=== PATIENT | female | born 1990 | race Caucasian/White ===

== ENCOUNTER 2016-09-14 15:37 | Emergency (ER) | payer OTHER ==
[~2016-09-14] VITALS: Ht 157.5 cm; Wt 70.8 kg
[~2016-09-14 15:37] MED LIST: AMOXICILLIN500 MG PO; ATHENOL325 MG PO; ATIVAN0.5 MG PO; BENTYL10 MG PO; BIRTH CONTROL PILL; BUTALB-APAP-CA1 EACH PO; CYMBALTA30 MG PO; CYMBALTA60 MG PO; DULOXETINE HCL30 MG PO; DULOXETINE HCL60 MG PO; FOLIC ACID0.4 MG PO; IBUPROFEN800 MG PO; IMITREX50 MG PO; KEPPRA1000 MG PO; KEPPRA500 MG PO; LAMICTAL150 MG PO; LAMICTAL25 MG PO; LAMOTRIGINE100 MG PO; LEVOFLOXACIN750 MG PO; LORAZEPAM0.5 MG PO; NORTRIPTYLINE H50 MG PO; PEN-VEE K,VEET500 MG PO; PERCOCET 5/31 TABLET PO; PREDNISONE20 MG PO; PRENATA CHEWAB1 EACH PO; PREVACID30 MG PO; PRILOSEC40 MG PO; PROAIR HFA8.5 GM IH; RISPERDAL1 M1 PO; SEROQUEL100 MG PO; SEROQUEL50 MG PO; SUMATRIPTAN SU100 MG PO; TOPAMAX25 MG PO; TORADOL10 MG PO; TRAZODONE HCL50 MG PO; TROKENDI XR200 MG PO; WELLBUTRIN SR150 MG PO; ZOFRAN ODT4 MG PO; ZOFRAN4 MG PO
[2016-09-14] MEDS ORDERED: LAMICTAL25 MG PO (15:50)
[2016-09-14] MEDS ORDERED: CYMBALTA60 MG PO (15:50)
[2016-09-14 17:00] LABS: MCH 29.3 PG (29.0-34.0); MCHC 33.9 G/DL (30.0-36.0); MCV 86.5 FL (83-99); MEAN PLAT.VOLUME 9.5 uM^3 (9.5-12.4); PLATELET COUNT 319 K/uL (156-360); RBC DIS.WIDTH-CV 12.6 % (11.8-14.6); RBC DIS.WIDTH-SD 39.9 % (39-53); RED BLOOD COUNT 4.74 M/uL (3.80-5.20); WHITE BLOOD COUNT 7.7 K/uL (4.1-10.2)
[2016-09-14 17:03] LABS: ADD MIUA? YES; BILIRUBIN NEGATIVE; BLOOD NEGATIVE; COLOR YELLOW ((YELLOW)); GLUCOSE (STRIP) NEGATIVE; KETONES NEGATIVE; LEUKOCYTES TRACE; NITRITE NEGATIVE; PROTEIN (STRIP) NEGATIVE; SPECIFIC GRAVITY 1.009 (1.000-1.030); UROBILINOGEN 0.2 MG/DL (0.2-1.0)
[2016-09-14 17:07] LABS: CHLORIDE 106 mEq/L (99-109); POTASSIUM 4.4 mEq/L (3.7-5.4); SODIUM 138 mEq/L (136-147)
[2016-09-14 17:10] LABS: GLUCOSE 91 mg/dL (70-99)
[2016-09-14 17:10] LABS: AMPHETAMINE NEGATIVE (500 ng/mL); BARBITURATES NEGATIVE (200 ng/mL); BENZODIAZEPINES NEGATIVE (150 ng/mL); COCAINE NEGATIVE (150 ng/mL); INTERNAL CONTROLS VALID? YES; METHADONE NEGATIVE (200 ng/mL); METHAMPHETAMINE NEGATIVE (500 ng/mL); OPIATES (MORPHINE) NEGATIVE (100 ng/mL); OXYCODONE NEGATIVE (100 ng/mL); PHENCYCLIDINE NEGATIVE (25 ng/mL); PROPOXYPHENE NEGATIVE (300 ng/mL); THC CANNABINOIDS NEGATIVE (50 ng/mL); TRICYCLIC ANTIDEPRESSANTS NEGATIVE (300 ng/mL)
[2016-09-14 17:11] LABS: ANION GAP 8 MEQ/L (2-14); TOTAL BILIRUBIN 0.4 mg/dL (0.0-1.0)
[2016-09-14 17:12] LABS: SERUM ETHYL ALCOHOL < 10 mg/dL
[2016-09-14 17:13] LABS: ALKALINE PHOSPHATASE 86 IU/L (3-129); GFR ESTIMATE (CALCULATED) > 59 mL/min/
[2016-09-14 17:14] LABS: UREA NITROGEN (BUN) 8 mg/dL (9-23)
[2016-09-14 17:20] LABS: BACTERIA 1+ /HPF; CASTS NONE SEEN /LPF; CRYSTALS NONE SEEN; EPITHELIAL CELLS 1+ /HPF; MUCUS RARE /LPF; RED BLOOD CELLS 0-5 /HPF (0-5)
[2016-09-14 20:29] LABS: QUANTITATIVE HCG < 4.0 MIU/ML
[2016-09-15 00:13] VITALS: BP 109/66
== END 2016-09-15 00:15 ==
LOC: EME 15:37
PROVIDERS: Emergency Medicine
DX: F33.2 Major depressive disorder, recurrent severe without psychotic features (principal); F43.10 Post-traumatic stress disorder, unspecified; R45.851 Suicidal ideations; R56.9 Unspecified convulsions; F17.200 Nicotine dependence, unspecified, uncomplicated
CPT/HCPCS: 80053; 81003; 84702; 85027; 90839; 99281; 99285; G0480

== ENCOUNTER 2016-10-28 15:06 | Emergency (ER) | payer OTHER ==
[~2016-10-28] VITALS: Ht 157.5 cm; Wt 70.4 kg
[2016-10-28 16:00] VITALS: BP 121/77
== END 2016-10-28 16:00 | disposition home or self-care (01) ==
LOC: EME 15:06
DX: N63 Unspecified lump in breast (principal)
CPT/HCPCS: 99281; 99282

== ENCOUNTER 2017-01-29 16:22 | Emergency (ER) | payer OTHER ==
[~2017-01-29] VITALS: Ht 157.5 cm; Wt 51.1 kg
[2017-01-29 17:03] LABS: HEMATOCRIT 42.7 % (36.0-46.0); MCH 30.5 PG (29.0-34.0); MCHC 34.7 G/DL (30.0-36.0); PLATELET COUNT 383 K/uL (156-360); RBC DIS.WIDTH-CV 12.1 % (11.8-14.6); RBC DIS.WIDTH-SD 39.1 % (39-53); RED BLOOD COUNT 4.85 M/uL (3.80-5.20); WHITE BLOOD COUNT 11.9 K/uL (4.1-10.2)
[2017-01-29 17:24] LABS: TROP-I INTERPRETATION NEGATIVE; TROPONIN-I < 0.01 ng/mL (0.0-0.30)
[2017-01-29 17:34] LABS: CHLORIDE 105 mEq/L (99-109); POTASSIUM 3.5 mEq/L (3.7-5.4); SODIUM 137 mEq/L (136-147)
[2017-01-29 17:36] LABS: GLUCOSE 93 mg/dL (70-99)
[2017-01-29 17:37] LABS: ANION GAP 11 MEQ/L (2-14)
[2017-01-29 17:40] LABS: GFR ESTIMATE (CALCULATED) > 59 mL/min/
[2017-01-29 17:41] LABS: UREA NITROGEN (BUN) 9 mg/dL (9-23)
[2017-01-29 17:48] LABS: QUANTITATIVE HCG < 4.0 MIU/ML
[2017-01-29 19:13] VITALS: BP 115/72
== END 2017-01-29 18:50 | disposition home or self-care (01) ==
LOC: EME 16:22
PROVIDERS: Emergency Medicine
DX: G40.909 Epilepsy, unspecified, not intractable, without status epilepticus (principal); J40 Bronchitis, not specified as acute or chronic; R51 Headache; R42 Dizziness and giddiness; Z82.49 Family history of ischemic heart disease and other diseases of the circulatory system; F17.200 Nicotine dependence, unspecified, uncomplicated
CPT/HCPCS: 71010; 80048; 84484; 84702; 85027; 93005; 94640; 99281; 99284

== ENCOUNTER 2017-02-13 21:48 | Emergency (ER) | payer OTHER ==
[~2017-02-13] VITALS: Ht 157.5 cm; Wt 74.9 kg
[2017-02-13] MEDS ORDERED: BACTRIM,SEPT1 TABLET PO (22:10)
[2017-02-13 22:41] VITALS: BP 139/72
== END 2017-02-13 22:42 | disposition home or self-care (01) ==
LOC: EME 21:48
DX: J20.9 Acute bronchitis, unspecified (principal); R11.10 Vomiting, unspecified; R19.7 Diarrhea, unspecified; F17.200 Nicotine dependence, unspecified, uncomplicated; F32.9 Major depressive disorder, single episode, unspecified; F41.9 Anxiety disorder, unspecified; R56.9 Unspecified convulsions
CPT/HCPCS: 99281; 99284

== ENCOUNTER 2017-02-24 15:42 | Emergency (ER) | payer SELFPAY ==
[~2017-02-24] VITALS: Ht 157.5 cm; Wt 72.5 kg
[~2017-02-24 15:42] MED LIST changes: +BACTRIM,SEPT1 TABLET PO
[2017-02-24 16:15] LABS: HEMATOCRIT 40.7 % (36.0-46.0); MCH 30.6 PG (29.0-34.0); MCHC 34.4 G/DL (30.0-36.0); MCV 88.9 FL (83-99); MEAN PLAT.VOLUME 9.4 uM^3 (9.5-12.4); PLATELET COUNT 380 K/uL (156-360); RBC DIS.WIDTH-SD 38.8 % (39-53); RED BLOOD COUNT 4.58 M/uL (3.80-5.20); WHITE BLOOD COUNT 7.7 K/uL (4.1-10.2)
[2017-02-24 16:24] LABS: CHLORIDE 107 mEq/L (99-109); POTASSIUM 4.1 mEq/L (3.7-5.4); SODIUM 139 mEq/L (136-147)
[2017-02-24 16:26] LABS: GLUCOSE 86 mg/dL (70-99)
[2017-02-24 16:28] LABS: ANION GAP 8 MEQ/L (2-14); TOTAL BILIRUBIN 0.4 mg/dL (0.0-1.0)
[2017-02-24 16:30] LABS: ALKALINE PHOSPHATASE 63 IU/L (3-129); GFR ESTIMATE (CALCULATED) > 59 mL/min/
[2017-02-24 16:31] LABS: UREA NITROGEN (BUN) 9 mg/dL (9-23)
[2017-02-24 16:40] LABS: QUANTITATIVE HCG < 4.0 MIU/ML
[2017-02-24] MEDS ORDERED: ATARAX,VISTARIL25 MG PO (17:53)
[2017-02-24] MEDS ORDERED: NUVARING VAGIN1 EACH VG (17:53)
[2017-02-24 18:22] LABS: ADD MIUA? YES; BILIRUBIN NEGATIVE; BLOOD NEGATIVE; COLOR YELLOW ((YELLOW)); GLUCOSE (STRIP) NEGATIVE; KETONES NEGATIVE; LEUKOCYTES NEGATIVE; NITRITE NEGATIVE; PROTEIN (STRIP) NEGATIVE; SPECIFIC GRAVITY 1.023 (1.000-1.030); UROBILINOGEN 0.2 MG/DL (0.2-1.0)
[2017-02-24 18:28] LABS: BACTERIA NONE SEEN /HPF; EPITHELIAL CELLS 1+ /HPF; MUCUS TRACE /LPF; RED BLOOD CELLS 0-5 /HPF (0-5); UCUL ADDED? NO; WHITE BLOOD CELLS 0-5 /HPF (0-5)
[2017-02-24] MEDS ORDERED: BENTYL20 MG PO (18:44)
[2017-02-24 20:24] VITALS: BP 117/79
== END 2017-02-24 20:29 | disposition home or self-care (01) ==
LOC: EME 15:42
DX: R10.31 Right lower quadrant pain (principal); R11.2 Nausea with vomiting, unspecified; F17.200 Nicotine dependence, unspecified, uncomplicated
CPT/HCPCS: 80053; 81003; 84702; 85027; 99281; 99284

== ENCOUNTER 2017-05-08 15:09 | Emergency (ER) | payer SELFPAY ==
[~2017-05-08] VITALS: Ht 157.5 cm; Wt 73.8 kg
[~2017-05-08 15:09] MED LIST changes: +ATARAX,VISTARIL25 MG PO; +BENTYL20 MG PO; +NUVARING VAGIN1 EACH VG
[2017-05-08] MEDS ORDERED: PHENERGAN-CODE120 ML PO (16:21)
[2017-05-08] MEDS ORDERED: ZITHROMAX Z-PA250 MG PO (16:21)
[2017-05-08 16:35] VITALS: BP 120/86
== END 2017-05-08 16:35 | disposition home or self-care (01) ==
LOC: EME 15:09
DX: J40 Bronchitis, not specified as acute or chronic (principal); F17.200 Nicotine dependence, unspecified, uncomplicated
CPT/HCPCS: 71046; 99281; 99284

== ENCOUNTER 2017-08-02 18:30 | Emergency (ER) | payer OTHER ==
[~2017-08-02] VITALS: Ht 157.5 cm; Wt 74.2 kg
[~2017-08-02 18:30] MED LIST changes: +PHENERGAN-CODE120 ML PO; +ZITHROMAX Z-PA250 MG PO
[2017-08-02 19:06] LABS: HEMATOCRIT 39.1 % (36.0-46.0); HEMOGLOBIN 13.6 G/DL (11.9-15.5); MCH 30.5 PG (29.0-34.0); MCHC 34.8 G/DL (30.0-36.0); MCV 87.7 FL (83-99); PLATELET COUNT 298 K/uL (156-360); RBC DIS.WIDTH-CV 11.9 % (11.8-14.6); RBC DIS.WIDTH-SD 38.4 % (39-53); RED BLOOD COUNT 4.46 M/uL (3.80-5.20); WHITE BLOOD COUNT 6.3 K/uL (4.1-10.2)
[2017-08-02 19:18] LABS: ALBUMIN 4.3 g/dL (3.2-4.8); CHLORIDE 102 mEq/L (99-109); POTASSIUM 3.9 mEq/L (3.7-5.4); SODIUM 138 mEq/L (136-147)
[2017-08-02 19:20] LABS: GLUCOSE 89 mg/dL (70-99); TOTAL PROTEIN 7.4 g/dL (6.4-8.3)
[2017-08-02 19:22] LABS: TOTAL BILIRUBIN 0.7 mg/dL (0.0-1.0)
[2017-08-02 19:24] LABS: ALKALINE PHOSPHATASE 68 IU/L (3-129); CREATININE 0.9 mg/dL (0.6-1.3); GFR ESTIMATE (CALCULATED) > 59 mL/min/
[2017-08-02 19:25] LABS: UREA NITROGEN (BUN) 10 mg/dL (9-23)
[2017-08-02 19:26] LABS: AST (GOT) 17 IU/L (2-34)
[2017-08-02 19:27] LABS: ALT (GPT) 16 IU/L (3-49)
[2017-08-02 19:33] LABS: QUANTITATIVE HCG 4.8 MIU/ML
[2017-08-02 20:54] VITALS: BP 119/82
== END 2017-08-02 20:54 | disposition home or self-care (01) ==
LOC: EME 18:30
PROVIDERS: Nurse Practitioner Family
DX: R10.2 Pelvic and perineal pain (principal); N93.9 Abnormal uterine and vaginal bleeding, unspecified; N83.202 Unspecified ovarian cyst, left side; F17.200 Nicotine dependence, unspecified, uncomplicated
CPT/HCPCS: 76856; 80053; 84702; 85027; 99281; 99285

== ENCOUNTER 2017-08-03 22:17 | Emergency (ER) | payer OTHER ==
[~2017-08-03] VITALS: Ht 157.5 cm; Wt 72.1 kg
[2017-08-03 23:28] LABS: HEMATOCRIT 38.9 % (36.0-46.0); HEMOGLOBIN 13.5 G/DL (11.9-15.5); MCH 30.8 PG (29.0-34.0); MCHC 34.7 G/DL (30.0-36.0); MCV 88.8 FL (83-99); PLATELET COUNT 277 K/uL (156-360); RBC DIS.WIDTH-CV 11.8 % (11.8-14.6); RBC DIS.WIDTH-SD 38.3 % (39-53); RED BLOOD COUNT 4.38 M/uL (3.80-5.20); WHITE BLOOD COUNT 5.9 K/uL (4.1-10.2)
[2017-08-03 23:40] LABS: CHLORIDE 104 mEq/L (99-109); POTASSIUM 3.7 mEq/L (3.7-5.4); SODIUM 136 mEq/L (136-147)
[2017-08-03 23:42] LABS: GLUCOSE 87 mg/dL (70-99); TOTAL PROTEIN 6.9 g/dL (6.4-8.3)
[2017-08-03 23:46] LABS: ALKALINE PHOSPHATASE 63 IU/L (3-129); CREATININE 0.8 mg/dL (0.6-1.3); GFR ESTIMATE (CALCULATED) > 59 mL/min/
[2017-08-03 23:47] LABS: UREA NITROGEN (BUN) 9 mg/dL (9-23)
[2017-08-03 23:48] LABS: APPEARANCE SL.HAZY ((CLEAR)); BILIRUBIN NEGATIVE; BLOOD NEGATIVE; COLOR YELLOW ((YELLOW)); GLUCOSE (STRIP) NEGATIVE; KETONES NEGATIVE; LEUKOCYTES MODERATE; NITRITE NEGATIVE; PROTEIN (STRIP) 30; SPECIFIC GRAVITY 1.023 (1.000-1.030); UROBILINOGEN 0.2 MG/DL (0.2-1.0)
[2017-08-03 23:48] LABS: AST (GOT) 16 IU/L (2-34)
[2017-08-03 23:49] LABS: ALT (GPT) 14 IU/L (3-49); LIPASE 33 U/L (1.0-51.0); TOTAL BILIRUBIN 0.5 mg/dL (0.0-1.0)
[2017-08-03 23:55] LABS: QUANTITATIVE HCG 4.2 MIU/ML
[2017-08-03 23:59] LABS: BACTERIA RARE /HPF; EPITHELIAL CELLS 1+ /HPF; MUCUS 1+ /LPF; RED BLOOD CELLS 0-5 /HPF (0-5); UCUL ADDED? YES
[2017-08-04] MEDS ORDERED: ZOFRAN ODT4 MG PO (01:33)
[2017-08-04] MEDS ORDERED: BENTYL10 MG PO (01:33)
[2017-08-04] MEDS ORDERED: ULTRAM50 MG PO (01:33)
[2017-08-04 01:45] VITALS: BP 124/78
== END 2017-08-04 01:50 | disposition home or self-care (01) ==
LOC: EME 22:17
PROVIDERS: Physician Assistant
DX: N83.202 Unspecified ovarian cyst, left side (principal); R10.9 Unspecified abdominal pain; J98.11 Atelectasis; Z72.0 Tobacco use
CPT/HCPCS: 74177; 80053; 81003; 83690; 84702; 85027; 87086; 99281; 99285; J1885; J2405

== ENCOUNTER 2017-08-30 01:38 | Emergency (ER) | payer OTHER ==
[~2017-08-30] VITALS: Ht 157.5 cm; Wt 72.2 kg
[~2017-08-30 01:38] MED LIST changes: +ULTRAM50 MG PO
[2017-08-30] MEDS ORDERED: ULTRAM50 MG PO (02:47)
[2017-08-30] MEDS ORDERED: KEFLEX500 MG PO (02:47)
[2017-08-30 02:57] VITALS: BP 145/85
== END 2017-08-30 02:57 | disposition home or self-care (01) ==
LOC: EME 01:38
DX: M25.562 Pain in left knee (principal); G89.29 Other chronic pain; H60.391 Other infective otitis externa, right ear; E78.5 Hyperlipidemia, unspecified; F41.9 Anxiety disorder, unspecified; F31.9 Bipolar disorder, unspecified
CPT/HCPCS: 73564; 99281; 99283